=== PATIENT | female | born 1985 | race Caucasian/White ===

== ENCOUNTER 2021-01-09 18:49 | Emergency (ER) | payer OTHER ==
[2021-01-09 19:32] VITALS: O2SAT 100
--- NOTE | 2021-01-09 20:11 | ERPHSYRPT ---
- History of Present Illness Time Seen by Provider: 01/09/21 20:06 Source: patient Exam Limitations: no limitations Patient Subjective Stated Complaint: "I'm trying to get into a rehab center." Triage Nursing Assessment: Patient reported that she and her fiance are trying to find rehab help for heroin use. Reported last use was this morning. Reported that her drug of choice is heroin with fentanyl in it however she will use whatever drug is around. Reported having been to multiple hospitals today attempting to find placement. Last use was this morning. Reported being in rehab one year prior and had issues with the suboxone that they gave her. She reported being discharged on subutex. Denied dizziness, visual/auditory disturbances. Denied chest pain, palpitations, or shortness of breath. Reported intermittent nausea which she attributes to nerves about going through rehab. Reported having mild constipation during use which resolved with laxatives. last BM was today. Pupils 3mm brisk direct and consensual reaction to light. oral mucosa pink/moist. Neck supple non-tender without lymphadenopathy. Symmetrical chest expansion. Heart tones S1/S2 regular rate and rhythm without extra sounds. Lungs vesicular with adequate airflow. Abdomen obese non-distended. bowel sounds normoactive in all quadrants. Peripheral pulses +2 bilateral. No noted dependent edema. Physician History: Patient reported that she and her fiance are trying to find rehab help for heroin use. Reported last use was this morning. Reported that her drug of choice is heroin with fentanyl in it however she will use whatever drug is around. Reported having been to multiple hospitals today attempting to find placement. Last use was this morning. Reported being in rehab one year prior and had issues with the suboxone that they gave her. She reported being discharged on subutex. Denied dizziness, visual/auditory disturbances. Denied chest pain, palpitations, or shortness of breath. Reported intermittent nausea which she attributes to nerves about going through rehab. Reported having mild constipation during use which resolved with laxatives. last BM was today. Severity of Symptoms-Max: mild Severity of Symptoms-Current: mild Associated Symptoms: anxiety, confused, hostile, impaired concentration Allergies/Adverse Reactions: No Known Drug Allergies Allergy (Unverified 01/09/21 19:13) Home Medications: No Reportable Medications [No Reported Medications] 01/09/21 [History] Hx Tetanus, Diphtheria Vaccination/Date Given: No Hx Influenza Vaccination/Date Given: Yes Travel Risk - International Travel Have you traveled outside of the country in past 3 weeks: No - Coronavirus Screening Are you exhibiting any of the following symptoms?: No Close contact with a COVID-19 positive Pt in past 14-21 Days: No - Past Medical History Pertinent Past Medical History: Yes History: Renal Disease Psycho-Social History: Anxiety, Depression, Panic Disorder - Past Surgical History Past Surgical History: Yes Female Surgical History: Section, Tubal Ligation - Social History Smoking Status: Current every day smoker Exposure to second hand smoke: No Drug Use: heroin Patient Lives Alone: No (homeless) - Female History Hx Now: No - Review of Systems Constitutional: No Fever, No Chills Eyes: No Symptoms Ears, Nose, & Throat: No Symptoms Respiratory: No Cough, No Dyspnea Cardiac: No Chest Pain, No Edema, No Syncope Abdominal/Gastrointestinal: No Abdominal Pain, No Nausea, No Vomiting, No Diarrhea Genitourinary Symptoms: No Dysuria Musculoskeletal: No Back Pain, No Neck Pain Skin: No Rash Neurological: No Dizziness, No Focal Weakness, No Sensory Changes Psychological: Drug Abuse, Anxiety, Emotional Lability, Mood Changes Endocrine: No Symptoms All Other Systems: Reviewed and Negative - Nursing Vital Signs Nursing Vital Signs: Initial Vital Signs Pulse Rate 94 H 01/09/21 18:52 Respiratory Rate 16 01/09/21 18:52 Blood Pressure 154/104 01/09/21 18:52 O2 Sat by Pulse Oximetry 100 01/09/21 18:52 Pain Scale Pain Intensity 0 - Physical Exam General Appearance: no apparent distress Eyes, Ears, Nose, Throat Exam: normal ENT inspection, moist mucous membranes Neck Exam: normal inspection, non-tender, supple Respiratory Exam: normal breath sounds, lungs clear, No respiratory distress Cardiovascular Exam: regular rate/rhythm, No edema Gastrointestinal/Abdominal Exam: soft, No tenderness, No distention Extremities Exam: normal inspection, normal range of motion, No evidence of injury, No edema Current Suicidality: denies suicide plan Neurological Exam: alert, 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, oriented x 3 Appearance: appropriate appearance Behavior/Eye Contact/Speech: good eye contact Thoughts/Hallucinations: no apparent hallucination Skin Exam: normal color, warm, dry, No rash SpO2: 100 - Course Nursing assessment & vital signs reviewed: Yes Ordered Tests: Active Orders 24 hr Category Date Time Status CBC W DIFF Stat Lab 01/09/21 20:15 Completed CMP Stat Lab 01/09/21 20:15 Completed CULTURE,URINE Stat Lab 01/09/21 20:14 Received ETHYL ALCOHOL Stat Lab 01/09/21 20:15 Completed HCG,QUALITATIVE URINE Stat Lab 01/09/21 20:14 Completed UA W/RFX UR CULTURE Stat Lab 01/09/21 20:14 Completed Urine Triage Profile Stat Lab 01/09/21 20:14 Completed Transfer Order Routine Transfer 01/09/21 Ordered Medication Summary Discontinued Medications Generic Name Dose Route Start Last Admin Trade Name Freq PRN Reason Stop Dose Admin Haloperidol Lactate 5 mg 01/09/21 20:53 01/09/21 21:01 Haldol 5 Mg IM 01/09/21 20:54 5 mg STAT ONE Administration Haloperidol Lactate Confirm 01/09/21 20:55 Haldol 5 Mg Administered 01/09/21 20:56 Dose 5 mg .ROUTE .STK-MED ONE Lorazepam 2 mg 01/09/21 20:53 01/09/21 21:01 Ativan 2 Mg/1 Ml Vial IM 01/09/21 20:54 2 mg STAT ONE Administration Lorazepam Confirm 01/09/21 20:55 Ativan 2 Mg/1 Ml Vial Administered 01/09/21 20:56 Dose 2 mg .ROUTE .STK-MED ONE Lab/Rad Data: Laboratory Result Diagrams 01/09/21 20:15 01/09/21 20:15 Laboratory Results 01/09/21 01/09/21 01/09/21 Range/Units 20:15 20:15 20:14 WBC 5.9 (4.0-10.5) K/mm3 RBC 3.79 L (4.1-5.4) M/mm3 Hgb 11.1 L (12.0-16.0) gm/dl Hct 35.6 (35-47) % MCV 93.9 (78-100) fl MCH 29.3 (26-32) pg MCHC 31.2 L (32-36) g/dl RDW 13.6 (11.5-14.0) % Plt Count 243 (150-450) K/mm3 MPV 10.4 (7.5-11.0) fl Gran % 46.0 (36.0-66.0) % Eos # (Auto) 0.15 (0-0.5) Absolute Lymphs (auto) 2.35 (1.0-4.6) Absolute Monos (auto) 0.69 (0.0-1.3) Lymphocytes % 39.6 (24.0-44.0) % Monocytes % 11.6 (0.0-12.0) % Eosinophils % 2.5 (0.00-5.0) % Basophils % 0.3 (0.0-0.4) % Absolute Granulocytes 2.72 (1.4-6.9) Basophils # 0.02 (0-0.4) Sodium 142 (137-145) mmol/L Potassium 4.2 (3.5-5.1) mmol/L Chloride 100 (98-107) mmol/L Carbon Dioxide 32 H (22-30) mmol/L Anion Gap 13.2 (5-15) MEQ/L BUN 16 (7-17) mg/dL Creatinine 0.88 (0.52-1.04) mg/dL Estimated GFR > 60.0 ML/MIN Glucose 80 (74-106) mg/dL Calcium 9.9 (8.4-10.2) mg/dL Total Bilirubin 0.20 (0.2-1.3) mg/dL AST 77 H (14-36) U/L ALT 81 H (0-35) U/L Alkaline Phosphatase 91 (38-126) U/L Serum Total Protein 7.8 (6.3-8.2) g/dL Albumin 4.3 (3.5-5.0) g/dL Urine Color (YELLOW) Urine Appearance (CLEAR) Urine pH (5-6) Ur Specific [place] (1.005-1.025) Urine Protein (Negative) Urine Ketones (NEGATIVE) Urine Blood (0-5) David/ul Urine Nitrite (NEGATIVE) Urine Bilirubin (NEGATIVE) Urine Urobilinogen (0-1) mg/dL Ur Leukocyte Esterase (NEGATIVE) Urine WBC (Auto) (0-5) /HPF Urine RBC (Auto) (0-2) /HPF U Epithel Cells (Auto) (FEW) /HPF Urine Bacteria (Auto) (NEGATIVE) /HPF Urine Mucus (Auto) (NEGATIVE) /HPF Urine Culture Reflexed (NO) Urine Glucose (NEGATIVE) mg/dL Urine HCG, Qual NEGATIVE (Negative) Urine Opiates Level (NEGATIVE) Ur Methadone (NEGATIVE) Urine Barbiturates (NEGATIVE) Ur Phencyclidine (PCP) (NEGATIVE) Urine Amphetamine (NEGATIVE) U Benzodiazepine Level (NEGATIVE) Urine Cocaine (NEGATIVE) Urine Marijuana (THC) (NEGATIVE) Ethyl Alcohol < 10 (0-10) mg/dL 01/09/21 01/09/21 Range/Units 20:14 20:14 WBC (4.0-10.5) K/mm3 RBC (4.1-5.4) M/mm3 Hgb (12.0-16.0) gm/dl Hct (35-47) % MCV (78-100) fl MCH (26-32) pg MCHC (32-36) g/dl RDW (11.5-14.0) % Plt Count (150-450) K/mm3 MPV (7.5-11.0) fl Gran % (36.0-66.0) % Eos # (Auto) (0-0.5) Absolute Lymphs (auto) (1.0-4.6) Absolute Monos (auto) (0.0-1.3) Lymphocytes % (24.0-44.0) % Monocytes % (0.0-12.0) % Eosinophils % (0.00-5.0) % Basophils % (0.0-0.4) % Absolute Granulocytes (1.4-6.9) Basophils # (0-0.4) Sodium (137-145) mmol/L Potassium (3.5-5.1) mmol/L Chloride (98-107) mmol/L Carbon Dioxide (22-30) mmol/L Anion Gap (5-15) MEQ/L BUN (7-17) mg/dL Creatinine (0.52-1.04) mg/dL Estimated GFR ML/MIN Glucose (74-106) mg/dL Calcium (8.4-10.2) mg/dL Total Bilirubin (0.2-1.3) mg/dL AST (14-36) U/L ALT (0-35) U/L Alkaline Phosphatase (38-126) U/L Serum Total Protein (6.3-8.2) g/dL Albumin (3.5-5.0) g/dL Urine Color YELLOW (YELLOW) Urine Appearance CLEAR (CLEAR) Urine pH 6.0 (5-6) Ur Specific [place] 1.017 (1.005-1.025) Urine Protein 30 (Negative) Urine Ketones NEGATIVE (NEGATIVE) Urine Blood MODERATE (0-5) David/ul Urine Nitrite NEGATIVE (NEGATIVE) Urine Bilirubin NEGATIVE (NEGATIVE) Urine Urobilinogen NEGATIVE (0-1) mg/dL Ur Leukocyte Esterase NEGATIVE (NEGATIVE) Urine WBC (Auto) 0-2 (0-5) /HPF Urine RBC (Auto) 51-100 (0-2) /HPF U Epithel Cells (Auto) RARE (FEW) /HPF Urine Bacteria (Auto) RARE (NEGATIVE) /HPF Urine Mucus (Auto) SLIGHT (NEGATIVE) /HPF Urine Culture Reflexed YES (NO) Urine Glucose NEGATIVE (NEGATIVE) mg/dL Urine HCG, Qual (Negative) Urine Opiates Level POSITIVE (NEGATIVE) Ur Methadone NEGATIVE (NEGATIVE) Urine Barbiturates NEGATIVE (NEGATIVE) Ur Phencyclidine (PCP) NEGATIVE (NEGATIVE) Urine Amphetamine POSITIVE (NEGATIVE) U Benzodiazepine Level NEGATIVE (NEGATIVE) Urine Cocaine NEGATIVE (NEGATIVE) Urine Marijuana (THC) NEGATIVE (NEGATIVE) Ethyl Alcohol (0-10) mg/dL - Progress Progress: unchanged Progress Note: 01/09/21 20:09 We have contacted multiple rehab center[facility] but they will accept that patient tomorrow. Meanwhile we will observe the patient here and tomorrow will discharge the patient and patient will be admitted at rehab facility. - Departure Departure Disposition: AMA Clinical Impression: Heroin withdrawal, Polysubstance abuse Condition: Fair Critical Care Time: No Referrals: DOCTOR,NO FAMILY [Primary Care Provider] -
[2021-01-09 20:14] VITALS: BP 137/101; PULSE 88
[2021-01-09 20:18] LABS: Absolute Neutrophil Ct (ANC) 2.72 (1.4-6.9); BASOPHIL % 0.3 % (0.0-0.4); Basophil (Absolute #) 0.02 (0-0.4); Eosinophil % 2.5 % (0.00-5.0); Eosinophil (Absolute #) 0.15 (0-0.5); Hematocrit 35.6 % (35-47); Hemoglobin 11.1 gm/dl (12.0-16.0); Lymphocyte (Absolute #) 2.35 (1.0-4.6); Lymphocytes % 39.6 % (24.0-44.0); Mean Cell Volume 93.9 fl (78-100); Mean Corpuscular Hemoglobin 29.3 pg (26-32); Mean Corpuscular Hgb Concent. 31.2 g/dl (32-36); Mean Platelet Volume 10.4 fl (7.5-11.0); Monocyte (Absolute #) 0.69 (0.0-1.3); Monocytes % 11.6 % (0.0-12.0); Platelet Count 243 K/mm3 (150-450); Red Blood Count 3.79 M/mm3 (4.1-5.4); Red Cell Distribution Width 13.6 % (11.5-14.0); White Blood Count 5.9 K/mm3 (4.0-10.5)
[2021-01-09 20:22] LABS: Appearance CLEAR (CLEAR); Bacteria RARE /HPF (NEGATIVE); Bilirubin NEGATIVE (NEGATIVE); Blood MODERATE Ery/ul (0-5); Epithelial Cells RARE /HPF (FEW); Glucose NEGATIVE (NEGATIVE); Ketones NEGATIVE (NEGATIVE); Leukocyte Esterase NEGATIVE (NEGATIVE); Mucus SLIGHT /HPF (NEGATIVE); Nitrite NEGATIVE (NEGATIVE); Protein,Urine Dip 30 (Negative); RBC 51-100 /HPF (0-2); Specific Gravity 1.017 (1.005-1.025); Urobilinogen NEGATIVE mg/dL (0-1); WBC 0-2 /HPF (0-5)
[2021-01-09 20:33] LABS: ALBUMIN 4.3 g/dL (3.5-5.0); ALKALINE PHOSPHATASE 91 U/L (38-126); ANION GAP 13.2 MEQ/L (5-15); BLOOD UREA NITROGEN 16 mg/dL (7-17); CHLORIDE 100 mmol/L (98-107); Calcium 9.9 mg/dL (8.4-10.2); Carbon Dioxide 32 mmol/L (22-30); Creatinine 1 0.88 mg/dL (0.52-1.04); EST GLOMERULAR FILTRATION RATE > 60.0 ML/MIN; ETHYL ALCOHOL < 10 mg/dL (0-10); Glucose 80 mg/dL (74-106); Potassium 4.2 mmol/L (3.5-5.1); SGOT/AST 77 U/L (14-36); SGPT/ALT 81 U/L (0-35); SODIUM 142 mmol/L (137-145); Total Protein 7.8 g/dL (6.3-8.2)
[2021-01-09 20:38] LABS: Barbiturate,Urine NEGATIVE (NEGATIVE); Benzodiazepine,Urine NEGATIVE (NEGATIVE); Cocaine,Urine NEGATIVE (NEGATIVE); Methadone,Urine NEGATIVE (NEGATIVE); Opiate,Urine POSITIVE (NEGATIVE); PCP,Urine NEGATIVE (NEGATIVE); THC,Urine NEGATIVE (NEGATIVE)
[2021-01-09] MEDS ORDERED: Ativan 2 MG/1 ML VIAL IM ONE (20:53)
[2021-01-09] MEDS ORDERED: Haldol 5 MG IM ONE (20:53)
[2021-01-09] MEDS ORDERED: Ativan 2 MG/1 ML VIAL ONE (20:55)
[2021-01-09] MEDS ORDERED: Haldol 5 MG ONE (20:55)
[2021-01-09 21:02] LABS: Amphetamine,Urine POSITIVE (NEGATIVE)
[2021-01-09 21:48] LABS: INFLUENZA A NEGATIVE (NEGATIVE); INFLUENZA B NEGATIVE (NEGATIVE); RESPIRATORY SYNCTIAL VIRUS NEGATIVE (Negative)
== END 2021-01-09 21:06 | disposition left against medical advice (07) ==
LOC: ED 18:49
DX: F19.139 Other psychoactive substance abuse with withdrawal, unspecified (principal)
CPT/HCPCS: 0241U; 36415; 80053; 80307; 81001; 84703; 85025; 87086; 96372; 99284; G0480; J1630; J2060

== ENCOUNTER 2021-01-09 21:53 | Observation (INO) | payer OTHER ==
--- NOTE | 2021-01-09 22:00 | ERPHSYRPT ---
- History of Present Illness Time Seen by Provider: 01/09/21 21:58 Physician History: Patient was just seen in ER patient left AGAINST MEDICAL ADVICE went into the parking lot and then called ambulance so she was brought in back to the hospital. Patient has underwent all evaluation and she was already admitted so we will continue those orders and will admit her. 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 - Past Surgical History Past Surgical History: Yes Female Surgical History: Section, Tubal Ligation - Social History Smoking Status: Current every day smoker Exposure to second hand smoke: No Drug Use: heroin Patient Lives Alone: No (homeless) - Review of Systems Constitutional: No Fever, No Chills Eyes: No Symptoms Ears, Nose, & Throat: No Symptoms Respiratory: No Cough, No Dyspnea Cardiac: No Chest Pain, No Edema, No Syncope Abdominal/Gastrointestinal: No Abdominal Pain, No Nausea, No Vomiting, No Diarrh ea Genitourinary Symptoms: No Dysuria Musculoskeletal: No Back Pain, No Neck Pain Skin: No Rash Neurological: No Dizziness, No Focal Weakness, No Sensory Changes Psychological: No Symptoms Endocrine: No Symptoms All Other Systems: Reviewed and Negative - Physical Exam General Appearance: no apparent distress Eyes, Ears, Nose, Throat Exam: normal ENT inspection, moist mucous membranes Neck Exam: normal inspection, non-tender, supple Respiratory Exam: normal breath sounds, lungs clear, No respiratory distress Cardiovascular Exam: regular rate/rhythm, No edema Gastrointestinal/Abdominal Exam: soft, No tenderness, No distention Extremities Exam: normal inspection, normal range of motion, No evidence of injury, No edema Current Suicidality: denies suicide plan Neurological Exam: alert, 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
[2021-01-09] MEDS ORDERED: TYLENOL 325 MG PO PRN (22:47)
[2021-01-09] MEDS ORDERED: Haldol 5 MG IM PRN (22:47)
[2021-01-09] MEDS ORDERED: Ativan 2 MG/1 ML VIAL IM PRN (22:47)
[2021-01-10 11:37] VITALS: BP 154/79; PULSE 90; O2SAT 99
--- NOTE | 2021-01-29 15:29 | PCM.SSS ---
History of Present Illness - Chief Complaint Chief Complaint: drug addiction Date: 01/10/21 History of Present Illness: is a 35 year old female. Presented to ER after going to several ER's in the past 24 hours. Pt. notes a long history of drug abuse disorder and now would like to be evaluated for admission to an inpatient treatment facility - Review of Systems Constitutional: Malaise Eyes: No Symptoms Ears, Nose, & Throat: No Symptoms Respiratory: No Cough, No Short Of Breath Cardiac: No Chest Pain, No Edema, No Syncope Abdominal/Gastrointestinal: No Abdominal Pain, No Nausea, No Vomiting, No Diarrhea Genitourinary Symptoms: No Dysuria Musculoskeletal: No Back Pain, No Neck Pain Skin: No Rash Neurological: No Dizziness, No Focal Weakness, No Sensory Changes Psychological: No Symptoms Endocrine: No Symptoms Hematologic/Lymphatic: No Symptoms Immunological/Allergic: No Symptoms Medications & Allergies Home Medications: Home Medication List No Reportable Medications [No Reported Medications] 01/09/21 [History Confirmed 01/09/21] Allergies/Adverse Reactions: Allergies Allergy/AdvReac Type Severity Reaction Status Date / Time No Known Drug Allergies Allergy Verified 01/09/21 23:11 - Past Medical History Past Medical History: Yes Neurological History: No Pertinent History ENT History: No Pertinent History Cardiac History: No Pertinent History CARDIAC HISTORY: No Pertinent History Respiratory History: No Pertinent History Endocrine Medical History: No Pertinent History Musculoskelatal History: No Pertinent History GI Medical History: No Pertinent History History: Renal Disease Pyscho-Social History: Anxiety, Depression, Panic Disorder Comment: 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 - Female History Are you now?: No - Past Surgical History Past Surgical History: Yes Female Surgical History: Section, Tubal Ligation - Social History Smoking Status: Current every day smoker Exposure to second hand smoke: No Alcohol: None Drug Use: heroin - Physical Exam General Appearance: no apparent distress, alert Neurologic Exam: alert, oriented x 3, cooperative, normal mood/affect, nml cerebellar function, nml station & gait, sensation nml, No motor deficits Eye Exam: PERRL/EOMI, eyes nml inspection Ears, Nose, Throat Exam: normal ENT inspection, TMs normal, pharynx normal, moist mucous membranes Neck Exam: normal inspection, non-tender, supple, full range of motion Respiratory Exam: normal breath sounds, lungs clear, No respiratory distress Cardiovascular Exam: regular rate/rhythm, normal heart sounds, normal peripheral pulses Gastrointestinal/Abdomen Exam: soft, normal bowel sounds, No tenderness, No mass Back Exam: normal inspection, normal range of motion, No CVA tenderness, No vertebral tenderness Extremity Exam: normal inspection, normal range of motion, pelvis stable Skin Exam: normal color, warm, dry, No rash Lymphatic Exam: No adenopathy Results - Labs Lab/Micro Results: Microbiology 01/09/21 20:14 Urine Culture - Final Urine, Void NO GROWTH Assessment/Plan (1) Heroin withdrawal Status: Acute Code(s): F11.23 - OPIOID DEPENDENCE WITH WITHDRAWAL (2) Polysubstance abuse Status: Acute Code(s): F19.10 - OTHER PSYCHOACTIVE SUBSTANCE ABUSE, UNCOMPLICATED Hospital Summary - Hospital Course Hospital Course: pt. was admitted and withdrawal symptoms were controlled during hospitalization and inpatient treatment facility has agreed to accept the patient for treatment of her polysubstance abuse history, pt. declined going and requested d/c, as she already had another facility lined out for day after tomorrow - Vitals & Intake/Output Vital Signs: Vital Signs Temperature Pulse Rate 88 01/09/21 20:00 Respiratory Rate 16 01/09/21 20:00 Blood Pressure 137/101 01/09/21 20:00 O2 Sat by Pulse Oximetry 100 01/09/21 21:07 - Lab Micro Results-Entire Visit: Microbiology 01/09/21 20:14 Urine Culture - Final Urine, Void NO GROWTH - Discharge Discharge Date: 01/10/21 Disposition: Home, Self-Care Condition: Fair Prescriptions: No Action No Reportable Medications [No Reported Medications] Instructions: Drug Abuse and Drug Addiction (DC) Additional Instructions: FOLLOW UP INPATIENT WITH [facility].
== END 2021-01-10 12:40 | disposition home or self-care (01) ==
LOC: ED 21:53 → ICU 22:38
PROVIDERS: ADMIT Family Medicine; ATTEND Family Medicine
DX: F11.23 Opioid dependence with withdrawal (principal); F19.10 Other psychoactive substance abuse, uncomplicated
CPT/HCPCS: 93268; 99284; G0378

== ENCOUNTER 2022-10-27 12:13 | Emergency (ER) | payer OTHER ==
[2022-10-27 12:51] VITALS: PULSE 100
[2022-10-27 13:11] LABS: Absolute Neutrophil Ct (ANC) 3.61 x10^3/uL (1.4-6.9); Basophil (Absolute #) 0.03 x10^3/uL (0-0.4); Eosinophil % 2.9 % (0.00-5.0); Hematocrit 32.5 % (35-47); Hemoglobin 10.5 g/dL (12.0-16.0); Lymphocyte (Absolute #) 2.46 x10^3/uL (1.0-4.6); Lymphocytes % 35.4 % (24.0-44.0); Mean Cell Volume 90.5 fL (78-100); Mean Corpuscular Hemoglobin 29.2 pg (26-32); Mean Corpuscular Hgb Concent. 32.3 g/dL (32-36); Mean Platelet Volume 9.9 fL (7.5-11.0); Monocyte (Absolute #) 0.63 x10^3/uL (0.0-1.3); Monocytes % 9.1 % (0.0-12.0); Neutrophil % 52.1 % (36.0-66.0); Platelet Count 245 x10^3/uL (150-450); Red Blood Count 3.59 x10^6/uL (4.1-5.4); Red Cell Distribution Width 13.9 % (11.5-14.0); White Blood Count 6.9 x10^3/uL (4.0-10.5)
[2022-10-27 13:24] LABS: ACETAMINOPHEN < 10 ug/ml (10-30); ALBUMIN 3.8 g/dL (3.5-5.0); ALKALINE PHOSPHATASE 68 U/L (38-126); ANION GAP 7.9 MEQ/L (5-15); BLOOD UREA NITROGEN 15 mg/dL (7-17); CHLORIDE 102 mmol/L (98-107); Calcium 8.7 mg/dL (8.4-10.2); Carbon Dioxide 31 mmol/L (22-30); Creatinine 1 0.82 mg/dL (0.52-1.04); EST GLOMERULAR FILTRATION RATE > 60.0 ML/MIN; ETHYL ALCOHOL < 10 mg/dL (0-10); Glucose 90 mg/dL (74-106); Potassium 3.7 mmol/L (3.5-5.1); SALICYLATE < 1.0 mg/dL (2-20); SGOT/AST 44 U/L (14-36); SGPT/ALT 38 U/L (0-35); SODIUM 137 mmol/L (137-145); Total Protein 6.7 g/dL (6.3-8.2)
[2022-10-27 14:31] VITALS: BP 128/94; O2SAT 95
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
[2022-10-27 15:31] LABS: INFLUENZA A NEGATIVE (NEGATIVE); INFLUENZA B NEGATIVE (NEGATIVE); RESPIRATORY SYNCTIAL VIRUS NEGATIVE (Negative); SARS-CoV-2 Xpert Express NEGATIVE (NEGATIVE)
[2022-10-27 16:43] LABS: Appearance Cloudy (Clear); Bilirubin Negative (Negative); Blood Moderate (Negative); Glucose Negative (Negative); Ketones Negative (Negative); Leukocyte Esterase Trace (Negative); Nitrite Negative (Negative); Protein,Urine Dip 30 (Negative); Specific Gravity 1.015 (1.005-1.030); Urobilinogen 0.2 mg/dL (0.2)
[2022-10-27 16:54] LABS: Amphetamine,Urine POSITIVE (NEGATIVE); Barbiturate,Urine NEGATIVE (NEGATIVE); Benzodiazepine,Urine NEGATIVE (NEGATIVE); Cocaine,Urine NEGATIVE (NEGATIVE); Methadone,Urine NEGATIVE (NEGATIVE); Opiate,Urine NEGATIVE (NEGATIVE); PCP,Urine NEGATIVE (NEGATIVE); THC,Urine NEGATIVE (NEGATIVE)
[2022-10-27 17:00] LABS: Bacteria None Seen /HPF (None Seen); Epithelial Cells None Seen /HPF (None Seen); Hyaline Casts 0-2 /LPF (0-2); RBC 51-100 /HPF (0-5)
[2022-10-27 17:31] LABS: ADD URINE CULTURE? NO (NO)
== END 2022-10-27 17:03 ==
LOC: ED 12:13
DX: Z02.89 Encounter for other administrative examinations (principal); F19.10 Other psychoactive substance abuse, uncomplicated; R40.0 Somnolence; Z28.310 Unvaccinated for COVID-19; Z72.0 Tobacco use
CPT/HCPCS: 0241U; 36415; 80053; 80307; 81001; 84703; 85025; 93005; 99283; G0480

== ENCOUNTER 2023-12-27 21:09 | Emergency (ER) | payer OTHER ==
--- NOTE | 2023-12-27 21:39 | ERPHSYRPT ---
- History of Present Illness Time Seen by Provider: 12/27/23 21:40 Exam Limitations: no limitations Physician History: Patient is a 38-year-old female current alf inmate presents to our ED for morena luation of tachycardia. Patient admits to history of heroin addiction. Patient has been incarcerated for 2 weeks. Patient states she withdrew last week. The accompanying officer states that patient was tachycardic today. Patient experienced shortness of breath and chest pain at that time. Patient received a beta-tc nitroglycerin and aspirin. Patient currently states that her chest pain is minimal. She has a resting tachycardia of 114. 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 Patient also reports that she is currently recovering from pneumonia. Patient completed a course of antibiotics yesterday. Patient symptoms are mild to moderate in intensity. No specific worsening or improving factors. Patient states she is otherwise healthy. She voices no other complaints or concerns at this time. Portions of this note were created with voice recognition technology. There may be grammatical, spelling, punctuation or sound alike errors Timing/Duration: today Activities at Onset: none Quality: aching Location: substernal Chest Pain Radiation: no radiation Severity of Pain-Max: moderate Severity of Pain-Current: mild Modifying Factors: Improves With: nothing Associated Symptoms: palpitations, No fever, No edema Prior Chest Pain/Cardiac Workup: no prior chest pain Nitro Today/Relief: 0.4 mg x 2 Aspirin Treatment Today: 81 mg x 1 Allergies/Adverse Reactions: No Known Drug Allergies Allergy (Verified 12/27/23 21:45) Home Medications: Prazosin HCl [Minipress] 1 mg PO HS 12/27/23 [History] Sertraline HCl 50 mg [Zoloft 50 mg Tablet] 50 mg PO HS 12/27/23 [History] Hx Tetanus, Diphtheria Vaccination/Date Given: No Hx Influenza Vaccination/Date Given: Yes Travel Risk - Vaccine Status Have you recieved a Covid-19 vaccination: No - Review of Systems Constitutional: No Symptoms, No Fever, No Chills Eyes: No Symptoms Ears, Nose, & Throat: No Symptoms Respiratory: No Symptoms, No Cough, No Dyspnea Cardiac: No Symptoms, No Chest Pain, No Edema, No Syncope Abdominal/Gastrointestinal: No Symptoms, No Abdominal Pain, No Nausea, No Vomiting, No Diarrhea Genitourinary Symptoms: No Symptoms, No Dysuria Musculoskeletal: No Symptoms, No Back Pain, No Neck Pain Skin: No Symptoms, No Rash Neurological: No Symptoms, No Dizziness, No Focal Weakness, No Sensory Changes Psychological: No Symptoms Endocrine: No Symptoms Hematologic/Lymphatic: No Symptoms Immunological/Allergic: No Symptoms All Other Systems: Reviewed and Negative - Past Medical History Pertinent Past Medical History: Yes Neurological History: No Pertinent History ENT History: No Pertinent History Cardiac History: No Pertinent History Respiratory History: No Pertinent History Endocrine Medical History: No Pertinent History Musculoskeletal History: No Pertinent History GI Medical History: No Pertinent History History: Renal Disease Psycho-Social History: Anxiety, Depression, Panic Disorder Female Reproductive Disorders: Other 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 - Past Surgical History Past Surgical History: Yes Neuro Surgical History: No Pertinent History Cardiac: No Pertinent History Respiratory: No Pertinent History Gastrointestinal: No Pertinent History Musculoskeletal: No Pertinent History Female Surgical History: Section, Tubal Ligation - Social History Smoking Status: Current every day smoker Exposure to second hand smoke: Yes Drug Use: methamphetamines, heroin Patient Lives Alone: No (homeless) - Nursing Vital Signs Nursing Vital Signs: Initial Vital Signs Pulse Rate 112 H 12/27/23 21:12 Respiratory Rate 20 12/27/23 21:12 Blood Pressure 139/107 12/27/23 21:12 O2 Sat by Pulse Oximetry 100 12/27/23 21:12 Pain Scale Pain Intensity 3 - Physical Exam General Appearance: no apparent distress, alert Eye Exam: PERRL/EOMI, eyes nml inspection Ears, Nose, Throat Exam: normal ENT inspection, TMs normal, pharynx normal, mo ist mucous membranes Neck Exam: normal inspection, non-tender, supple, full range of motion Respiratory Exam: normal breath sounds, lungs clear, airway intact, No respiratory distress Cardiovascular Exam: regular rate/rhythm, normal heart sounds, normal peripheral pulses Gastrointestinal/Abdomen Exam: soft, No tenderness, No mass Back Exam: normal inspection, No CVA tenderness, No vertebral tenderness Extremity Exam: normal inspection, normal range of motion Neurologic Exam: alert, oriented x 3, cooperative, normal mood/affect, sensation nml, No motor deficits Skin Exam: normal color, warm, dry SpO2 Interpretation: normal SpO2: 98 O2 Delivery: Room Air - Course Nursing assessment & vital signs reviewed: Yes EKG Interpreted by Me: RATE ([id number]), Sinus Tach, NORMAL AXIS, NORMAL INTERVALS Ordered Tests: Active Orders 24 hr Category Date Time Status [employer] STAT Care 12/27/23 21:28 Active EKG-ER Only STAT Care 12/27/23 21:27 Active IV Insertion STAT Care 12/27/23 21:27 Active Pulse Oximetry (ED) STAT Care 12/27/23 21:27 Active CHEST 1 VIEW (PORTABLE) Stat Exams 12/28/23 01:06 Completed ACETAMINOPHEN Stat Lab 12/27/23 21:27 Completed CBC W DIFF Stat Lab 12/27/23 21:27 Completed CMP Stat Lab 12/27/23 21:27 Completed CULTURE,URINE Stat Lab 12/27/23 22:44 Received D-DIMER QUANTITATIVE Stat Lab 12/27/23 21:27 Completed ETHYL ALCOHOL Stat Lab 12/27/23 21:27 Completed NT PRO BNPII Stat Lab 12/27/23 22:00 Completed SALICYLATE Stat Lab 12/27/23 21:27 Completed TROPONIN Q4H Lab 12/27/23 22:00 Completed TROPONIN Q4H Lab 12/28/23 00:05 Completed TROPONIN Q4H Lab 12/28/23 05:30 Ordered UA W/RFX UR CULTURE Stat Lab 12/27/23 22:44 Completed Urine Triage Profile Stat Lab 12/27/23 22:44 Completed Holter Monitor ONCE RT 12/28/23 01:55 Active Medication Summary Discontinued Medications Generic Name Dose Route Start Last Admin Trade Name Freq PRN Reason Stop Dose Admin Acetaminophen 1,000 mg 12/27/23 23:45 12/27/23 23:47 Acetaminophen 500 Mg Tablet PO 12/27/23 23:46 1,000 mg STAT STA Administration Acetaminophen Confirm 12/27/23 23:46 Acetaminophen 500 Mg Tablet Administered 12/27/23 23:47 Dose 1,000 mg .ROUTE .STK-MED ONE Lab/Rad Data: Laboratory Result Diagrams 12/27/23 21:27 12/27/23 21:27 Laboratory Results 12/28/23 12/27/23 12/27/23 Range/Units 00:05 22:44 22:44 WBC (4.0-10.5) x10^3/uL RBC (4.1-5.4) x10^6/uL Hgb (12.0-16.0) g/dL Hct (35-47) % MCV (78-100) fL MCH (26-32) pg MCHC (32-36) g/dL RDW (11.5-14.0) % Plt Count (150-450) x10^3/uL MPV (7.5-11.0) fL Gran % (36.0-66.0) % Immature Gran % (Auto) (0.00-0.4) % Nucleat RBC Rel Count (0.00-0.1) % Eos # (Auto) (0-0.5) x10^3/uL Immature Gran # (Auto) (0.00-0.03) x10^3u/L Absolute Lymphs (auto) (1.0-4.6) x10^3/uL Absolute Monos (auto) (0.0-1.3) x10^3/uL Absolute Nucleated RBC (0.00-0.01) x10^3u/L Lymphocytes % (24.0-44.0) % Monocytes % (0.0-12.0) % Eosinophils % (0.00-5.0) % Basophils % (0.0-0.4) % Absolute Granulocytes (1.4-6.9) x10^3/uL Basophils # (0-0.4) x10^3/uL D-Dimer (0.0-0.50) mg/L Sodium (135-145) mmol/L Potassium (3.5-5.1) mmol/L Chloride (98-107) mmol/L Carbon Dioxide (22-30) mmol/L Anion Gap (5-15) MEQ/L BUN (7-17) mg/dL Creatinine (0.52-1.04) mg/dL Estimated GFR ML/MIN Glucose (74-106) mg/dL Calcium (8.4-10.2) mg/dL Total Bilirubin (0.2-1.3) mg/dL AST (14-36) U/L ALT (0-35) U/L Alkaline Phosphatase (38-126) U/L Troponin I < 0.012 (0.000-0.034) ng/mL NT-Pro-B Natriuret Pep (<300) pg/mL Serum Total Protein (6.3-8.2) g/dL Albumin (3.5-5.0) g/dL Urine Color Yellow (Yellow) Urine Appearance Clear (Clear) Urine pH 5.5 (4.6-8.0) Ur Specific [place] 1.025 (1.005-1.030) Urine Protein 100 A (Negative) Urine Glucose (UA) Negative (Negative) mg/dL Urine Ketones Trace A (Negative) Urine Blood Large A (Negative) Urine Nitrite Negative (Negative) Urine Bilirubin Negative (Negative) Urine Urobilinogen 1.0 A (0.2) mg/dL Ur Leukocyte Esterase Negative (Negative) U Hyaline Cast (Auto) NONE SEEN (0-2) /LPF Urine Microscopic RBC 51-100 A (0-5) /HPF Urine Microscopic WBC 0-2 (0-5) /HPF Ur Epithelial Cells None Seen (None Seen) /HPF Urine Bacteria None Seen (None Seen) /HPF Urine Culture Reflexed YES (NO) Salicylates (2-20) mg/dL Urine Opiates Level NEGATIVE (NEGATIVE) Ur Methadone NEGATIVE (NEGATIVE) Acetaminophen (10-30) ug/ml Urine Barbiturates NEGATIVE (NEGATIVE) Ur Phencyclidine (PCP) NEGATIVE (NEGATIVE) Urine Amphetamine NEGATIVE (NEGATIVE) U Benzodiazepine Level NEGATIVE (NEGATIVE) Urine Cocaine NEGATIVE (NEGATIVE) Urine Marijuana (THC) NEGATIVE (NEGATIVE) Ethyl Alcohol (0-10) mg/dL 12/27/23 12/27/23 12/27/23 Range/Units 22:00 21:27 21:27 WBC (4.0-10.5) x10^3/uL RBC (4.1-5.4) x10^6/uL Hgb (12.0-16.0) g/dL Hct (35-47) % MCV (78-100) fL MCH (26-32) pg MCHC (32-36) g/dL RDW (11.5-14.0) % Plt Count (150-450) x10^3/uL MPV (7.5-11.0) fL Gran % (36.0-66.0) % Immature Gran % (Auto) (0.00-0.4) % Nucleat RBC Rel Count (0.00-0.1) % Eos # (Auto) (0-0.5) x10^3/uL Immature Gran # (Auto) (0.00-0.03) x10^3u/L Absolute Lymphs (auto) (1.0-4.6) x10^3/uL Absolute Monos (auto) (0.0-1.3) x10^3/uL Absolute Nucleated RBC (0.00-0.01) x10^3u/L Lymphocytes % (24.0-44.0) % Monocytes % (0.0-12.0) % Eosinophils % (0.00-5.0) % Basophils % (0.0-0.4) % Absolute Granulocytes (1.4-6.9) x10^3/uL Basophils # (0-0.4) x10^3/uL D-Dimer 0.24 (0.0-0.50) mg/L Sodium 141 (135-145) mmol/L Potassium 4.0 (3.5-5.1) mmol/L Chloride 107 (98-107) mmol/L Carbon Dioxide 26 (22-30) mmol/L Anion Gap 13.0 (5-15) MEQ/L BUN 26 H (7-17) mg/dL Creatinine 1.05 H (0.52-1.04) mg/dL Estimated GFR 70.2 ML/MIN Glucose 159 H (74-106) mg/dL Calcium 9.2 (8.4-10.2) mg/dL Total Bilirubin < 0.10 L (0.2-1.3) mg/dL AST 26 (14-36) U/L ALT 25 (0-35) U/L Alkaline Phosphatase 87 (38-126) U/L Troponin I < 0.012 (0.000-0.034) ng/mL NT-Pro-B Natriuret Pep 29.9 (<300) pg/mL Serum Total Protein 7.8 (6.3-8.2) g/dL Albumin 4.2 (3.5-5.0) g/dL Urine Color (Yellow) Urine Appearance (Clear) Urine pH (4.6-8.0) Ur Specific [place] (1.005-1.030) Urine Protein (Negative) Urine Glucose (UA) (Negative) mg/dL Urine Ketones (Negative) Urine Blood (Negative) Urine Nitrite (Negative) Urine Bilirubin (Negative) Urine Urobilinogen (0.2) mg/dL Ur Leukocyte Esterase (Negative) U Hyaline Cast (Auto) (0-2) /LPF Urine Microscopic RBC (0-5) /HPF Urine Microscopic WBC (0-5) /HPF Ur Epithelial Cells (None Seen) /HPF Urine Bacteria (None Seen) /HPF Urine Culture Reflexed (NO) Salicylates < 1.0 L (2-20) mg/dL Urine Opiates Level (NEGATIVE) Ur Methadone (NEGATIVE) Acetaminophen < 10 L (10-30) ug/ml Urine Barbiturates (NEGATIVE) Ur Phencyclidine (PCP) (NEGATIVE) Urine Amphetamine (NEGATIVE) U Benzodiazepine Level (NEGATIVE) Urine Cocaine (NEGATIVE) Urine Marijuana (THC) (NEGATIVE) Ethyl Alcohol < 10 (0-10) mg/dL 12/27/23 Range/Units 21:27 WBC 8.4 (4.0-10.5) x10^3/uL RBC 4.26 (4.1-5.4) x10^6/uL Hgb 11.8 L (12.0-16.0) g/dL Hct 36.9 (35-47) % MCV 86.6 (78-100) fL MCH 27.7 (26-32) pg MCHC 32.0 (32-36) g/dL RDW 15.4 H (11.5-14.0) % Plt Count 255 (150-450) x10^3/uL MPV 11.0 (7.5-11.0) fL Gran % 54.5 (36.0-66.0) % Immature Gran % (Auto) 0.2 (0.00-0.4) % Nucleat RBC Rel Count 0.0 (0.00-0.1) % Eos # (Auto) 0.07 (0-0.5) x10^3/uL Immature Gran # (Auto) 0.02 (0.00-0.03) x10^3u/L Absolute Lymphs (auto) 3.19 (1.0-4.6) x10^3/uL Absolute Monos (auto) 0.51 (0.0-1.3) x10^3/uL Absolute Nucleated RBC 0.00 (0.00-0.01) x10^3u/L Lymphocytes % 38.0 (24.0-44.0) % Monocytes % 6.1 (0.0-12.0) % Eosinophils % 0.8 (0.00-5.0) % Basophils % 0.4 (0.0-0.4) % Absolute Granulocytes 4.57 (1.4-6.9) x10^3/uL Basophils # 0.03 (0-0.4) x10^3/uL D-Dimer (0.0-0.50) mg/L Sodium (135-145) mmol/L Potassium (3.5-5.1) mmol/L Chloride (98-107) mmol/L Carbon Dioxide (22-30) mmol/L Anion Gap (5-15) MEQ/L BUN (7-17) mg/dL Creatinine (0.52-1.04) mg/dL Estimated GFR ML/MIN Glucose (74-106) mg/dL Calcium (8.4-10.2) mg/dL Total Bilirubin (0.2-1.3) mg/dL AST (14-36) U/L ALT (0-35) U/L Alkaline Phosphatase (38-126) U/L Troponin I (0.000-0.034) ng/mL NT-Pro-B Natriuret Pep (<300) pg/mL Serum Total Protein (6.3-8.2) g/dL Albumin (3.5-5.0) g/dL Urine Color (Yellow) Urine Appearance (Clear) Urine pH (4.6-8.0) Ur Specific [place] (1.005-1.030) Urine Protein (Negative) Urine Glucose (UA) (Negative) mg/dL Urine Ketones (Negative) Urine Blood (Negative) Urine Nitrite (Negative) Urine Bilirubin (Negative) Urine Urobilinogen (0.2) mg/dL Ur Leukocyte Esterase (Negative) U Hyaline Cast (Auto) (0-2) /LPF Urine Microscopic RBC (0-5) /HPF Urine Microscopic WBC (0-5) /HPF Ur Epithelial Cells (None Seen) /HPF Urine Bacteria (None Seen) /HPF Urine Culture Reflexed (NO) Salicylates (2-20) mg/dL Urine Opiates Level (NEGATIVE) Ur Methadone (NEGATIVE) Acetaminophen (10-30) ug/ml Urine Barbiturates (NEGATIVE) Ur Phencyclidine (PCP) (NEGATIVE) Urine Amphetamine (NEGATIVE) U Benzodiazepine Level (NEGATIVE) Urine Cocaine (NEGATIVE) Urine Marijuana (THC) (NEGATIVE) Ethyl Alcohol (0-10) mg/dL - Progress Progress: improved Air Movement: good Progress Note: 38-year-old female presents to emergency department for evaluation of heart palp itations. Physical exam nonremarkable. EKG reveals sinus tachycardia. D-dimer negative. Troponin negative x 2. Patient's heart rate normalized. Chest x- ray reveals a right lower lobe pneumonia. Patient states she has been treated with azithromycin and Augmentin. She has no known drug allergies. Patient received an oral dose of Levaquin in our ED. Patient requested Zofran as she tends to develop some nausea with antibiotics. A prescription for Levaquin and Zofran forwarded to patient's pharmacy. In light of patient's palpitations a Holter monitor was placed. The alf approved the Holter monitor. Patient reassessed. She is asymptomatic at this time. Patient states she is ready for discharge. No indication for further workup at this time. Will discharge home. She voices no other complaints or concerns at this time. Portions of this note were created with voice recognition technology. There may be grammatical, spelling, punctuation or sound alike errors Complexity of problem addressed is moderate acute complicated No critical care time Complexity data reviewed and analyzed is moderate. Test ordered test reviewed. Results analyzed and correlated clinically with history and physical exam. Risk of complication and a risk of morbidity/mortality patient management is moderate. Prescription for Zofran and Levaquin forwarded to patient's pharmacy. Holter monitor placed. Vital stable. Time spent to discharge patient is approximately 30 minutes. Plan of care established for shared decision making. No social determinants of health present impede follow-up. Portions of this note were created with voice recognition technology. There may be grammatical, spelling, punctuation or sound alike errors 12/28/23 02:45 Blood Culture(s) Obtained: No Antibiotics given: Yes Counseled pt/family regarding: lab results, diagnosis, need for follow-up, rad results - Departure Departure Disposition: Home Clinical Impression: Hematuria, Heart palpitations, Pneumonia Condition: Stable Critical Care Time: No Referrals: DOCTOR,NO FAMILY [NON-STAFF PHY W/O PRIVILEGES] - Follow up/PCP as directed Instructions: Blood in the urine (hematuria) in adults, Palpitations (DC) Additional Instructions: Discharge/Care Plan ZURI TODD was seen on 12/28/23 in the Emergency Room. The patient was counseled regarding Diagnosis,Lab results, Imaging studies, need for follow up and when to return to the Emergency Room. Prescriptions given: Discharge Note I have spoken with the patient and/or caregivers. I have explained the patient's condition, diagnosis and treatment plan based on the information available to me at this time. I have answered the patient's and/or caregiver's questions and addressed any concerns. The patient and/or caregivers have as good understanding of the patient's diagnosis, condition and treatment plan as can be expected at this point. The vital signs have been stable. The patient's condition is stable and appropriate for discharge from the emergency department. The patient will pursue further outpatient evaluation with the primary care physician or other designated or consulting physician as outlined in the discharge instructions. The patient and/or caregivers are agreeable to this plan of care and follow-up instructions have been explained in detail. The patient and/or caregivers have received these instruction. The patient/and or caregivers are aware that any significant change in condition or worsening of symptoms should prompt an immediate return to this or the closest emergency department or call 911.
[2023-12-27 21:46] LABS: Absolute Neutrophil Ct (ANC) 4.57 x10^3/uL (1.4-6.9); BASOPHIL % 0.4 % (0.0-0.4); Basophil (Absolute #) 0.03 x10^3/uL (0-0.4); Eosinophil % 0.8 % (0.00-5.0); Eosinophil (Absolute #) 0.07 x10^3/uL (0-0.5); Hematocrit 36.9 % (35-47); Hemoglobin 11.8 g/dL (12.0-16.0); IMMATURE GRAN # 0.02 x10^3u/L (0.00-0.03); IMMATURE GRAN % 0.2 % (0.00-0.4); Lymphocyte (Absolute #) 3.19 x10^3/uL (1.0-4.6); Mean Cell Volume 86.6 fL (78-100); Mean Corpuscular Hemoglobin 27.7 pg (26-32); Monocyte (Absolute #) 0.51 x10^3/uL (0.0-1.3); Monocytes % 6.1 % (0.0-12.0); Neutrophil % 54.5 % (36.0-66.0); Platelet Count 255 x10^3/uL (150-450); Red Blood Count 4.26 x10^6/uL (4.1-5.4); Red Cell Distribution Width 15.4 % (11.5-14.0); White Blood Count 8.4 x10^3/uL (4.0-10.5)
[2023-12-27 22:03] LABS: ACETAMINOPHEN < 10 ug/ml (10-30); ALBUMIN 4.2 g/dL (3.5-5.0); ALKALINE PHOSPHATASE 87 U/L (38-126); BILIRUBIN,TOTAL < 0.10 mg/dL (0.2-1.3); BLOOD UREA NITROGEN 26 mg/dL (7-17); CHLORIDE 107 mmol/L (98-107); Calcium 9.2 mg/dL (8.4-10.2); Carbon Dioxide 26 mmol/L (22-30); Creatinine 1 1.05 mg/dL (0.52-1.04); EST GLOMERULAR FILTRATION RATE 70.2 ML/MIN; ETHYL ALCOHOL < 10 mg/dL (0-10); Glucose 159 mg/dL (74-106); SALICYLATE < 1.0 mg/dL (2-20); SGOT/AST 26 U/L (14-36); SGPT/ALT 25 U/L (0-35); SODIUM 141 mmol/L (135-145); Total Protein 7.8 g/dL (6.3-8.2)
[2023-12-27 22:14] LABS: NT PRO BNPII 29.9 pg/mL (<300); TROPONIN < 0.012 ng/mL (0.000-0.034)
[2023-12-27 22:57] LABS: Appearance Clear (Clear); Bacteria None Seen /HPF (None Seen); Bilirubin Negative (Negative); Blood Large (Negative); Epithelial Cells None Seen /HPF (None Seen); Glucose, Urine Negative (Negative); Hyaline Casts NONE SEEN /LPF (0-2); Ketones Trace (Negative); Leukocyte Esterase Negative (Negative); Nitrite Negative (Negative); Ph 5.5 (4.6-8.0); Protein,Urine Dip 100 (Negative); RBC 51-100 /HPF (0-5); Specific Gravity 1.025 (1.005-1.030); WBC 0-2 /HPF (0-5)
[2023-12-27 23:01] LABS: ADD URINE CULTURE? YES (NO)
[2023-12-27 23:08] LABS: Amphetamine,Urine NEGATIVE (NEGATIVE); Barbiturate,Urine NEGATIVE (NEGATIVE); Benzodiazepine,Urine NEGATIVE (NEGATIVE); Cocaine,Urine NEGATIVE (NEGATIVE); Methadone,Urine NEGATIVE (NEGATIVE); Opiate,Urine NEGATIVE (NEGATIVE); PCP,Urine NEGATIVE (NEGATIVE); THC,Urine NEGATIVE (NEGATIVE)
[2023-12-27] MEDS ORDERED: TYLENOL EXTRA STRENGTH 500 MG ONE (23:46)
[2023-12-27] MEDS: TYLENOL EXTRA STRENGTH 500 MG PO STA (23:47)
[2023-12-28 02:01] VITALS: BP 120/81; PULSE 80; RESP 12
--- NOTE | 2023-12-28 02:29 | XRAY ---
CLINICAL HISTORY: Pain TECHNIQUE: X ray of the chest, AP view. COMPARISON: None FINDINGS: Patchy area of haziness noted in the right lower zone with blunting of right costophrenic angle could be secondary to mild pulmonary infection. Prominent bronchovascular margin also noted in bilateral lower zones Normal configuration of the mediastinum. The sendy are normal in size and position. The cardiac size is normal. The bony thorax is unremarkable. The left costophrenic and cardiophrenic angles are clear. IMPRESSION: Active pulmonary infection noted in the right Lower zone with blunting of right costophrenic angle could be secondary to mild pleural effusion, would recommend clinical correlation and follow-up , if indicated further workup with CT is advised. Electronically Signed by: Medina Enrique MD. (12/28/2023 02:24:36 EST)
[2023-12-28] MEDS ORDERED: Levofloxacin 500 MG Tablet ONE (02:35)
[2023-12-28] MEDS: Levofloxacin 500 MG Tablet PO ONE (02:36)
[2023-12-28 02:43] VITALS: O2SAT 98
== END 2023-12-28 02:50 | disposition home or self-care (01) ==
LOC: EEVIPCON 21:09 → ED 21:09
DX: R00.2 Palpitations (principal); J18.9 Pneumonia, unspecified organism; R07.9 Chest pain, unspecified; R00.0 Tachycardia, unspecified; R06.02 Shortness of breath; F17.200 Nicotine dependence, unspecified, uncomplicated; F15.11 Other stimulant abuse, in remission; R31.9 Hematuria, unspecified; Z20.828 Contact with and (suspected) exposure to other viral communicable diseases
CPT/HCPCS: 36000; 36415; 71045; 80053; 80143; 80179; 80307; 81001; 82077; 83880; 84484; 85025; 85379; 87086; 93005; 93041; 94760; 99284; A9270-GY